=== PATIENT | male | born 1960 | race African-American/Black ===

== ENCOUNTER 2017-02-24 07:21 | Emergency (ER) | payer OTHER ==
[~2017-02-24] VITALS: Ht 172.7 cm; Wt 65.0 kg
[2017-02-24 07:24] VITALS: BP 193/101; PULSE 69; RESP 24; TEMP 98.9; O2SAT 100
[2017-02-24] MEDS ORDERED: SODIUM CHLOR 0.9% 1000 ML INJ 1,000 ML IV SCH (07:32)
--- NOTE | 2017-02-24 07:39 | PD ---
HPI Chief Complaint: GI Complaint Time Seen by Provider: 07:30 Travel History International Travel<30 days: No Contact w/Intl Traveler<30days: No Traveled to known affect area: No History of Present Illness HPI This is a 57-year-old gentleman who presents today with complaints of nausea and diarrhea and abdominal cramps. Patient states that he's been having these symptoms since early this morning. He reports his girlfriend has same symptoms and was being treated earlier today in the ER. He denies any fevers, chills. He reports abdominal cramps that are followed by the diarrhea. He denies any vomiting. He denies any urinary symptoms. He questions whether this could be food related since he and his girlfriend had the same meal. There no other complaints time my examination. [facility] Social History Tobacco Use: No Allergies-Medications (Allergen,Severity, Reaction): Coded Allergies: No Known Allergies (Unverified , 09/18/12) Reported Meds & Prescriptions Reported Meds & Active Scripts Active Bentyl (Dicyclomine HCl) 20 Mg Tab 20 Mg PO TID PRN Zofran Odt (Ondansetron Odt) 4 Mg Tab 4 Mg SL Q6HR PRN Review of Systems Except as stated in HPI: all other systems reviewed are Neg General / Constitutional: No: Fever, Chills HENT: No: Headaches, Lightheadedness Cardiovascular: No: Chest Pain or Discomfort, Palpitations Respiratory: No: Cough, Shortness of Breath Gastrointestinal: Positive: Nausea, Diarrhea, Abdominal Pain (cramps), No: Vomiting Genitourinary: No: Dysuria, Hematuria Musculoskeletal: No: Weakness, Pain Neurologic: No: Weakness, Headache Physical Exam Narrative GENERAL: Well-nourished, well-developed patient, complaining of abdominal cramps. SKIN: Focused skin assessment warm/dry. HEAD: Normocephalic/atraumatic. EYES: No scleral icterus. No injection or drainage. NECK: Supple, trachea midline. CARDIOVASCULAR: Regular rate and rhythm without murmurs, gallops, or rubs. RESPIRATORY: Breath sounds equal bilaterally. No accessory muscle use. GASTROINTESTINAL: Abdomen soft, nondistended. The patient has subjective cramps. His abdomen is soft and nontender to touch. MUSCULOSKELETAL: No cyanosis, or edema. NEUROLOGICAL: Awake and alert. Cranial nerves II through XII intact. Motor grossly within normal limits. Five out of 5 muscle strength in all muscle groups. Normal speech. Data Data Last Documented VS Vital Signs Date Time Temp Pulse Resp B/P Pulse Ox O2 Delivery O2 Flow Rate FiO2 02/24/17 08:56 55 16 197/88 97 02/24/17 07:51 Room Air 02/24/17 07:24 98.9 Orders Complete Blood Count With Diff (02/24/17 07:32) Comprehensive Metabolic Panel (02/24/17 07:32) Lipase (02/24/17 07:32) Iv Access Insert/Monitor (02/24/17 07:32) Ecg Monitoring (02/24/17 07:32) Oximetry (02/24/17 07:32) Ondansetron Inj (Zofran Inj) (02/24/17 07:45) Sodium Chlor 0.9% 1000 Ml Inj (Ns 1000 M (02/24/17 07:32) Sodium Chloride 0.9% Flush (Ns Flush) (02/24/17 07:45) Dicyclomine Inj (Bentyl Inj) (02/24/17 07:45) Prochlorperazine Inj (Compazine Inj) (02/24/17 08:30) Potassium Chloride (Kcl) (02/24/17 08:45) Labs Laboratory Tests Test 02/24/17 07:45 White Blood Count 14.7 TH/MM3 Red Blood Count 3.76 MIL/MM3 Hemoglobin 12.4 GM/DL Hematocrit 37.4 % Mean Corpuscular Volume 99.5 FL Mean Corpuscular Hemoglobin 33.1 PG Mean Corpuscular Hemoglobin 33.2 % Concent Red Cell Distribution Width 12.9 % Platelet Count 202 TH/MM3 Mean Platelet Volume 8.8 FL Neutrophils (%) (Auto) 70.0 % Lymphocytes (%) (Auto) 19.2 % Monocytes (%) (Auto) 9.9 % Eosinophils (%) (Auto) 0.5 % Basophils (%) (Auto) 0.4 % Neutrophils # (Auto) 10.3 TH/MM3 Lymphocytes # (Auto) 2.8 TH/MM3 Monocytes # (Auto) 1.5 TH/MM3 Eosinophils # (Auto) 0.1 TH/MM3 Basophils # (Auto) 0.1 TH/MM3 CBC Comment DIFF FINAL Differential Comment Sodium Level 137 MEQ/L Potassium Level 3.4 MEQ/L Chloride Level 101 MEQ/L Carbon Dioxide Level 23.2 MEQ/L Anion Gap 13 MEQ/L Blood Urea Nitrogen 9 MG/DL Creatinine 1.01 MG/DL Estimat Glomerular Filtration 93 ML/MIN Rate Random Glucose 137 MG/DL Calcium Level 9.3 MG/DL Total Bilirubin 0.5 MG/DL Aspartate Amino Transf 20 U/L (AST/SGOT) Alanine Aminotransferase 20 U/L (ALT/SGPT) Alkaline Phosphatase 86 U/L Total Protein 8.1 GM/DL Albumin 4.4 GM/DL Lipase 138 U/L [facility] Medical Decision Making Medical Screen Exam Complete: Yes Emergency Medical Condition: Yes Differential Diagnosis Gastroenteritis versus food poisoning versus diverticulitis Narrative Course 57-year-old male who presents today with complaints of nausea and abdominal cramps and diarrhea. The patient's was seen for the same thing. They're suspicious that they had foodborne illness. The patient's been given Bentyl 10 mg IM times one dose. He is also been given 4 mg of Zofran and 10 mg of Compazine IV. His been given 1 L of IVD fluid. He is much more comfortable. He'll be discharged with a prescription for Zofran and Bentyl. He is instructed to start with a bland diet and advance as tolerated. Diagnosis Primary Impression: Gastroenteritis Additional Impression: mild hypokalemia Additional Instructions: Warren diet, advance as tolerated. Return if worse discomfort, fevers chills, or any other reason that concerned you. Scripts Dicyclomine (Bentyl)20 Mg Tab20 Mg PO TID PRN (Bowel Management) #10 TAB Ref 0 Prov:Darryl Waldrop MD 02/24/17 Ondansetron Odt (Zofran Odt)4 Mg Tab4 Mg SL Q6HR PRN (Nausea/Vomiting) #20 TAB Ref 0 Prov:Darryl Waldrop MD 02/24/17 Disposition: 01 DISCHARGE HOME Condition: Stable Darryl Waldrop MD February 24, 2017 07:39
[2017-02-24] MEDS ORDERED: SODIUM CHLORIDE 0.9% FLUSH 10 ML FLUSH IV FLUSH PRN (07:45)
[2017-02-24] MEDS ORDERED: ONDANSETRON HCL 4 MG/2 ML VIAL IVP ONE (07:45)
[2017-02-24] MEDS ORDERED: DICYCLOMINE HCL 20 MG/2 ML VIAL IM ONE (07:45)
[2017-02-24 07:57] LABS: AUTOMATED NEUTROPHIL # 10.3 TH/MM3 (1.8-7.7); BASOPHIL # 0.1 TH/MM3 (0-0.2); BASOPHIL % 0.4 % (0.0-2.0); EOSINOPHIL # 0.1 TH/MM3 (0-0.4); EOSINOPHIL % 0.5 % (0.0-4.0); HEMATOCRIT 37.4 % (39.0-51.0); HEMO FLAGS DIFF FINAL; LYMPH % 19.2 % (9.0-44.0); LYMPHOCYTE # 2.8 TH/MM3 (1.0-4.8); MEAN CELL VOLUME 99.5 FL (80.0-100.0); MEAN CORPUSCULAR HEMOGLOBIN 33.1 PG (27.0-34.0); MEAN CORPUSCULAR HGB CONC 33.2 % (32.0-36.0); MONO % 9.9 % (0.0-8.0); PLATELET COUNT 202 TH/MM3 (150-450); RED BLOOD COUNT 3.76 MIL/MM3 (4.50-5.90); RED CELL DISTRIBUTION WIDTH 12.9 % (11.6-17.2); WHITE BLOOD COUNT 14.7 TH/MM3 (4.0-11.0)
[2017-02-24 08:11] LABS: ANION GAP 13 MEQ/L (5-15); AST (GOT) 20 U/L (15-37); BICARBONATE 23.2 MEQ/L (21.0-32.0); BLOOD UREA NITROGEN 9 MG/DL (7-18); CHLORIDE 101 MEQ/L (98-107); GLOMERULAR FILTRATION RATE 93 ML/MIN (>89); POTASSIUM 3.4 MEQ/L (3.5-5.1); SODIUM (NA) 137 MEQ/L (136-145)
[2017-02-24 08:14] LABS: ALKALINE PHOSPHATASE 86 U/L (45-117); ALT (GPT) 20 U/L (12-78); TOTAL BILIRUBIN ADULT 0.5 MG/DL (0.2-1.0)
[2017-02-24] MEDS ORDERED: ZOFR4TAB3 SL (08:29)
[2017-02-24] MEDS ORDERED: BENT20TA PO (08:29)
[2017-02-24] MEDS ORDERED: PROCHLORPERAZINE INJ 10 MG/2 ML VIAL IV PUSH ONE (08:30)
[2017-02-24] MEDS ORDERED: POTASSIUM CHLORIDE 10 MEQ CONTROLLED RELEASE TAB PO ONE (08:45)
[2017-02-24 08:56] VITALS: BP 197/88; PULSE 55; RESP 16; O2SAT 97
== END 2017-02-24 09:28 | disposition home or self-care (01) ==
LOC: NEPE 07:21
DX: K52.9 Noninfective gastroenteritis and colitis, unspecified (principal); E87.6 Hypokalemia
CPT/HCPCS: 80053; 83690; 85025; 96361; 96372; 96374; 96375; 99284; J0500; J0780; J2405; J7030